=== PATIENT | female | born 1980 | race Caucasian/White ===

== ENCOUNTER 2017-08-02 20:41 | Emergency (ER) | payer SELFPAY ==
[~2017-08-02] VITALS: Ht 162.6 cm; Wt 71.7 kg
[2017-08-02] MEDS ORDERED: IBUPROFEN 600 MG TAB PO STA (21:48)
[2017-08-02 22:23] LABS: AMPHETAMINES SCREEN,URINE NEGATIVE (NEGATIVE); PHENCYCLIDINE SCREEN,URINE NEGATIVE (NEGATIVE)
[2017-08-02 22:24] LABS: BENZODIAZEPINES SCREEN,URINE NEGATIVE (NEGATIVE)
--- NOTE | 2017-08-02 22:31 | Diagnostic Imaging Report ---
History:Headache Comparison studies: None Technique: Axial images were obtained from the skull base to the vertex. Coronal and sagittal reconstructions obtained from the axial data. Findings: Scalp/skull: No abnormalities. No fractures, blastic or lytic lesions. Extra-axial spaces: No masses. No fluid collections. Brain sulci: Appropriate for age. Ventricles: Normal in size and configuration. No hydrocephalus. Parenchyma: No abnormal densities. No masses, hemorrhage, acute or chronic cortical vascular insults. Sellar/suprasellar region: No abnormalities Craniocervical junction: Patent foramen magnum. No Chiari one malformation. IMPRESSION: No abnormalities . Signed by: DR Jessu Orantes M.D. on 08/02/2017 10:27 PM
[2017-08-02 22:53] VITALS: BP 126/71
== END 2017-08-02 23:05 | disposition home or self-care (01) ==
LOC: ER 20:41
DX: G44.52 New daily persistent headache (NDPH) (principal); H93.13 Tinnitus, bilateral
CPT/HCPCS: 70450; 80307; 99283

== ENCOUNTER → 2018-02-03 | Day surgery (SDC) | payer BC ==
[2018-01-31 14:01] LABS: BASOPHILS # (AUTO) 0.1 (0.0-0.1); BASOPHILS % 0.7 % (0.0-1.0); EOSINOPHILS # (AUTO) 0.3 (0.0-0.4); EOSINOPHILS % 2.7 % (0.0-6.0); HEMATOCRIT 39.9 % (34.2-44.1); HEMOGLOBIN 12.5 g/dL (12.0-16.0); LYMPHOCYTES # (AUTO) 3.2 (1.0-3.2); LYMPHOCYTES % 31.5 % (18.0-39.1); MEAN CORPUSCULAR HEMOGLOBIN 26.9 pg (28-32); MEAN CORPUSCULAR HGB CONC 31.3 g/dL (31-35); MEAN CORPUSCULAR VOLUME 85.8 fL (81-99); MONOCYTES # (AUTO) 0.7 (0.2-0.8); MONOCYTES % 6.7 % (4.4-11.3); NEUTROPHILS # (AUTO) 5.9 (2.1-6.9); NEUTROPHILS % 58.1 % (38.7-80.0); PLATELET COUNT 393 x10e3/uL (140-360); RED BLOOD COUNT 4.65 x10e6/uL (3.6-5.1); RED CELL DISTRIBUTION WIDTH 13.8 % (11.7-14.4)
--- NOTE | 2018-01-31 14:59 | Diagnostic Imaging Report ---
EXAMINATION: CHEST 2 VIEWS INDICATION: \S\PRE ADMIT \[id number] \S\[id number] COMPARISON: None FINDINGS: PA and lateral views TUBES and LINES: None. LUNGS: Lungs are well inflated. Lungs are clear. There is no evidence of pneumonia or pulmonary edema. PLEURA: No pleural effusion or pneumothorax. HEART AND MEDIASTINUM: The cardiomediastinal silhouette is unremarkable. BONES AND SOFT TISSUES: No acute osseous lesion. Soft tissues are unremarkable. UPPER ABDOMEN: No free air under the diaphragm. IMPRESSION: No acute thoracic abnormality. Signed by: Dr. Loraine Coombs M.D. on 01/31/2018 2:55 PM
[~2018-02-03] MED LIST: DEXAMETHASONE SOD PHOS INJ 4 MG/ML VIAL ONE; FENTANYL CITRATE/PF 100MCG/2 ML INJ ONE; LIDOCAINE HCL 2% LOCAL INJ 5 ML SDV VIAL INJ ONE; MEPERIDINE HCL INJ 50 MG/ML INJ ONE; MIDAZOLAM HCL 2 MG/2 ML VIAL ONE; ONDANSETRON HCL INJ 2 MG/ML VIAL ONE; PROPOFOL IV EMULSION 10 MG/ML 20 ML VIAL ONE; SEVOFLURANE INHAL SOLN 250 ML PEN BTL ONE; VITAMIN C100 MG
[2018-02-03 14:28] VITALS: BP 102/64
--- NOTE | 2018-02-03 14:43 | Operative Report ---
DATE OF PROCEDURE: PREOPERATIVE DIAGNOSIS: Abnormal uterine bleeding. POSTOPERATIVE DIAGNOSES 1. Abnormal uterine bleeding. 2. Missed intrauterine device. OPERATION PERFORMED 1. Hysteroscopy. 2. Dilation and curettage. 3. Removal of a missed intrauterine device. COMPLICATIONS: None. ESTIMATED BLOOD LOSS: Minimal. DETAILS OF PROCEDURE: The patient was taken to the OR. General anesthesia was placed. She was prepped and draped in the normal sterile fashion and placed in the dorsal lithotomy position. After examination under anesthesia, weighted speculum was placed inside the vagina. Cervix was grasped with an Allis clamp. Cervix was dilated to Hegar 8. Cavity length measured 8 cm. Hysteroscope was introduced and showed a missed IUD . This was removed under direct visualization through the hysteroscope. Sharp curettings were obtained and sent to pathology. Cavity looked normal. No evidence of polyps or intrauterine fibroids. Job#: [id number] KATIE
== END | disposition home or self-care (01) ==
LOC: OR 10:13
PROVIDERS: ATTEND Obstetrics & Gynecology
DX: N93.8 Other specified abnormal uterine and vaginal bleeding (principal); Z30.432 Encounter for removal of intrauterine contraceptive device; J00 Acute nasopharyngitis [common cold]; I49.9 Cardiac arrhythmia, unspecified; E78.5 Hyperlipidemia, unspecified; F41.9 Anxiety disorder, unspecified; F17.210 Nicotine dependence, cigarettes, uncomplicated; Z01.810 Encounter for preprocedural cardiovascular examination; Z01.812 Encounter for preprocedural laboratory examination; Z01.818 Encounter for other preprocedural examination
CPT/HCPCS: 36415; 58562; 71046; 84702; 85025; 88300; 88305; 93005; J1100; J2001; J2175; J2250; J2405

== ENCOUNTER → 2018-06-27 | Outpatient (CLI) | payer BC ==
[~2018-06-27] MED LIST changes: -DEXAMETHASONE SOD PHOS INJ 4 MG/ML VIAL ONE; -FENTANYL CITRATE/PF 100MCG/2 ML INJ ONE; +GADOBENATE DIMEGLUMINE 0 ML IV ONE; +GADOBENATE DIMEGLUMINE 1 ML IV ONE; -LIDOCAINE HCL 2% LOCAL INJ 5 ML SDV VIAL INJ ONE; +LORAZEPAM INJ 2 MG/ML VIAL ONE; -MEPERIDINE HCL INJ 50 MG/ML INJ ONE; -MIDAZOLAM HCL 2 MG/2 ML VIAL ONE; -ONDANSETRON HCL INJ 2 MG/ML VIAL ONE; -PROPOFOL IV EMULSION 10 MG/ML 20 ML VIAL ONE; -SEVOFLURANE INHAL SOLN 250 ML PEN BTL ONE
--- NOTE | 2018-06-29 08:02 | Diagnostic Imaging Report ---
EXAM: MR Abdomen WITHOUT and WITH Contrast INDICATION: ^ABNORMAL FINDINGS ON GI IMAGIMG COMPARISON: None. TECHNIQUE: Multiplanar and multisequence imaging was performed of the abdomen without and with contrast. T1-weighted, T2-weighted images, T1-weighted in and [id number], and Diffusion weighted images. Dynamic, post gadolinium T1-weighted spoiled gradient echo scans. IV Contrast: 14 mL of MultiHance gadolinium Oral Contrast: None Medications: None COMPLICATIONS: None FINDINGS: LOWER THORAX: Unremarkable. HEPATOBILIARY: 2.5 x 3.4 cm lobulated T2 hyperintense, T1 hypointense lesion in segment 2 of the liver abutting the aorta (series 4, image 11). Lesion demonstrates avid arterial enhancement with persistent enhancement on subsequent phases. The lesion is isointense to the liver parenchyma on 5 minute delayed phase. Lesion is similar in intensity to the aorta in all phases except for arterial phase, which is slightly more intense compared to the aorta. No biliary ductal dilation. GALLBLADDER: No radio-opaque stones or sludge. No wall thickening. SPLEEN: No splenomegaly. PANCREAS: No focal masses or ductal dilatation. ADRENALS: No adrenal nodules KIDNEYS/URETERS: Kidneys enhance symmetrically. No hydronephrosis. No cystic or solid mass lesions. No stones. GI TRACT: No abnormal distention, wall thickening, or evidence of bowel obstruction. Appendix is not clearly identified. There is however no fat stranding or adenopathy in the right lower quadrant to suggest appendicitis. LYMPH NODES: No lymphadenopathy. VESSELS: Unremarkable. PERITONEUM / RETROPERITONEUM: No free air or fluid. BONES: Unremarkable. SOFT TISSUES: Unremarkable. IMPRESSION: 3.4 cm left hepatic lobe hemangioma. Signed by: Dr. Napoleon De Jesus M.D. on 06/29/2018 7:58 AM
== END ==
LOC: MRI 06-20 12:27
PROVIDERS: ATTEND Internal Medicine Gastroenterology
DX: R93.3 Abnormal findings on diagnostic imaging of other parts of digestive tract (principal)
CPT/HCPCS: 74183; 81025; J2060